=== PATIENT | female | born 1975 | race Two or more races ===

== ENCOUNTER 2024-06-23 17:12 | Emergency (ER) | payer BC, OTHER ==
[2024-06-23 17:24] VITALS: BP 114/80; PULSE 65; RESP 20; TEMP 98.2; BMI 27.9
[2024-06-23] MEDS ORDERED: ACETAMINOPHEN 325 MG TABLET (FP) ONE (18:19)
[2024-06-23] MEDS: ACETAMINOPHEN 500 MG TABLET (FP) PO ONE (18:23)
== END 2024-06-23 19:35 | disposition home or self-care (01) ==
LOC: FER 17:12
DX: N30.01 Acute cystitis with hematuria (principal); R30.0 Dysuria
CPT/HCPCS: 81003; 81015; 87086; 87186; 99283-25